=== PATIENT | male | born 1965 | race African-American/Black ===

== ENCOUNTER 2017-08-31 11:09 | Emergency (ER) | payer OTHER ==
[2017-08-31 11:36] VITALS: BP 128/85; PULSE 80; TEMP 98.4; BMI 31.1
[2017-08-31] MEDS ORDERED: ACETAMINOPHEN 325 MG TABLET (FP) PO ONE (11:46)
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
[2017-08-31] MEDS ORDERED: ACETAMINOPHEN 325 MG TABLET (FP) ONE (11:51)
== END 2017-08-31 13:12 | disposition home or self-care (01) ==
LOC: FER 11:09
DX: M25.531 Pain in right wrist (principal); V43.52XA Car driver injured in collision with other type car in traffic accident, initial encounter; Y93.89 Activity, other specified; Y92.410 Unspecified street and highway as the place of occurrence of the external cause
CPT/HCPCS: 73110-TC-RT-FY; 73130-TC-RT-FY; 99283-25

== ENCOUNTER 2017-11-21 13:32 | Emergency (ER) | payer OTHER ==
[2017-11-21 13:44] VITALS: BP 132/73; PULSE 88; TEMP 98.2; BMI 31.4
--- NOTE | 2017-11-21 14:22 | PDOC ---
History of Present Illness - General History Source: Patient Exam Limitations: No Limitations - History of Present Illness Initial Comments: 11/21/17 14:42 The patient is a 52 year old male, with a significant PMH of borderline diabetes , who presents to the emergency department for an evaluation for hyperglycemia. The patient state he did his routine blood work and noticed his blood glucose was elevated to 349. The patient reports associated symptoms of mild polyuria and polydipsia. The patient denies chest pain, shortness of breath, headache and dizziness. Denies fever, chills, nausea, vomit, diarrhea and constipation. Denies frequency, urgency and hematuria. Allergies: NKDA Past surgical history: None reported Social history: None reported PCP: Dr. Johnathon Carr <Cassie Alberto - Last Filed: 11/21/17 14:43> - General History Source: Patient Exam Limitations: No Limitations <Axel De Oliveira - Last Filed: 11/21/17 14:48> - General Chief Complaint: Blood Sugar Problem Stated Complaint: GLUCOSE IS HIGH Time Seen by Provider: 11/21/17 14:12 Past History <Cassie Alberto - Last Filed: 11/21/17 14:43> - Past Medical History COPD: No Diabetes: Yes (boarderline no meds) - Surgical History Abdominal Surgery: Yes (inguinal hernia) - Suicide/Smoking/Psychosocial Hx Smoking History: Never smoked Have you smoked in the past 12 months: No Information on smoking cessation initiated: No Hx Alcohol Use: No Drug/Substance Use Hx: No Substance Use Type: Alcohol <Axel De Oliveira - Last Filed: 11/21/17 14:48> - Past Medical History Allergies/Adverse Reactions: Allergies Allergy/AdvReac Type Severity Reaction Status Date / Time No Known Allergies Allergy Unverified 08/31/17 11:12 Home Medications: Ambulatory Orders Metformin HCl [Glucophage] 500 mg PO BID #60 tablet 11/21/17 Review of Systems - Review of Systems Able to Perform ROS?: Yes Comments:: 11/21/17 14:28 GENERAL/CONSTITUTIONAL: No fever or chills. No weakness. HEAD, EYES, EARS, NOSE AND THROAT: No change in vision. No ear pain or discharge. No sore throat. CARDIOVASCULAR: No chest pain or shortness of breath. RESPIRATORY: No cough, wheezing, or hemoptysis. GASTROINTESTINAL: No nausea, vomiting, diarrhea or constipation. GENITOURINARY: No dysuria, frequency, or change in urination. MUSCULOSKELETAL: No joint or muscle swelling or pain. No neck or back pain. SKIN: No rash NEUROLOGIC: No headache, vertigo, loss of consciousness, or change in strength/ sensation. ENDOCRINE: No increased thirst. No abnormal weight change. HEMATOLOGIC/LYMPHATIC: No anemia, easy bleeding, or history of blood clots. ALLERGIC/IMMUNOLOGIC: No hives or skin allergy. <Cassie Alberto - Last Filed: 11/21/17 14:43> *Physical Exam - Vital Signs Last Vital Signs Temp Pulse Resp BP Pulse Ox 98.2 F 88 18 132/73 99 11/21/17 13:42 11/21/17 13:42 11/21/17 13:42 11/21/17 13:42 11/21/17 13:42 - Physical Exam Comments: 11/21/17 14:28 GENERAL: Awake, alert, and fully oriented, in no acute distress HEAD: No signs of trauma EYES: PERRLA, EOMI, sclera anicteric, conjunctiva clear ENT: Auricles normal inspection, hearing grossly normal, nares patent, oropharynx clear without exudates. Moist mucosa NECK: Normal ROM, supple, no lymphadenopathy, JVD, or masses LUNGS: Breath sounds equal, clear to auscultation bilaterally. No wheezes, and no crackles HEART: Regular rate and rhythm, normal S1 and S2, no murmurs, rubs or gallops ABDOMEN: Soft, nontender, normoactive bowel sounds. No guarding, no rebound. No masses EXTREMITIES: Normal range of motion, no edema. No clubbing or cyanosis. No cords, erythema, or tenderness NEUROLOGICAL: Cranial nerves II through XII grossly intact. Normal speech, normal gait SKIN: Warm, Dry, normal turgor, no rashes or lesions noted. <Cassie Alberto - Last Filed: 11/21/17 14:43> - Vital Signs Last Vital Signs Temp Pulse Resp BP Pulse Ox 98.2 F 88 18 132/73 99 11/21/17 13:42 11/21/17 13:42 11/21/17 13:42 11/21/17 13:42 11/21/17 13:42 <Axel De Oliveira - Last Filed: 11/21/17 14:48> Medical Decision Making - Medical Decision Making 11/21/17 14:42 Dr. De Oliveira discussed patients case with Dr. Kelton Carr <Cassie Alberto - Last Filed: 11/21/17 14:43> - Medical Decision Making 11/21/17 14:21 Portion of my note was written by my scribe, under my supervision. 52-year-old male with borderline diabetes sent in for an evaluation for hyperglycemia. The patient reports that he was undergoing routine blood work today and noted that his glucose was elevated at 349 and that his cholesterol is elevated. Patient does endorse some mild polyuria and polydipsia but no other symptoms. Patient has no other complaints. There is no anion gap and acidosis and the blood work, which makes diabetic ketoacidosis unlikely. We'll discuss with the patient's prior care physician regards to initiating oral anti-hyperglycemics. The patient otherwise is well- appearing and nontoxic. 11/21/17 14:[address] Kelton Carr. Agrees with plan to initiate 500 mg metformin BID. For cholesterol, diet control for now. He will see patient in 5 days in his outpatient office. Pt agrees with plan and will follow up as an outpatient. <Axel De Oliveira - Last Filed: 11/21/17 14:48> *DC/Admit/Observation/Transfer - Attestations Scribe Attestion: 11/21/17 14:29 Documentation prepared by Cassie Alberto, acting as medical director/head team physician for Axel De Oliveira MD. <Cassie Alberto - Last Filed: 11/21/17 14:43> - Discharge Dispostion Decision to Admit order: No <Axel De Oliveira - Last Filed: 11/21/17 14:48> Diagnosis at time of Disposition: High cholesterol Diabetes Qualifiers: Diabetes mellitus type: type 2 Diabetes mellitus alf insulin use: without alf use Diabetes mellitus complication status: with unspecified complications Qualified Code(s): E11.8 - Type 2 diabetes mellitus with unspecified complications - Discharge Dispostion Disposition: HOME Condition at time of disposition: Good - Prescriptions Prescriptions: Metformin HCl [Glucophage] 500 mg PO BID #60 tablet - Referrals Referrals: Kelton Carr MD [Primary Care Provider] - - Patient Instructions Printed Discharge Instructions: Type 2 Diabetes, DI for High Cholesterol-Adult Additional Instructions: Your sugar is high. You will need to start taking diabetes medication called metformin. Please follow up with Dr. Carr this Friday. - Post Discharge Activity
[2017-11-21] MEDS ORDERED: metFORMIN HCL 500 MG TABLET (FP) PO ONE (14:47)
[2017-11-21] MEDS ORDERED: metFORMIN HCL 500 MG TABLET (FP) ONE (14:54)
== END 2017-11-21 14:58 | disposition home or self-care (01) ==
LOC: JER 13:32
DX: E11.65 Type 2 diabetes mellitus with hyperglycemia (principal); Z79.84 Long term (current) use of oral hypoglycemic drugs; E78.00 Pure hypercholesterolemia, unspecified
CPT/HCPCS: 99282-25